=== PATIENT | male | born 1950 | race Caucasian/White ===

== ENCOUNTER 2018-09-13 11:36 | Emergency (ER) | payer MEDICAID, MEDICARE ==
--- NOTE | 2018-09-13 12:40 | ED PDOC ---
Arrival/HPI - General Chief Complaint: Trauma Time Seen by Provider: 09/13/18 12:30 - History of Present Illness Narrative History of Present Illness (Text): 67 y/o male with PMH of HTN and diabetes presents to the ED for evaluation s/p witnessed mechanical fall earlier this morning. Pt was moving boxes when he tripped and fell to the ground, hitting the back of his head. Incident was witnessed by his family member who states that the patient was disoriented for a few seconds after the fall but did not lose consciousness. After the incident, patient stood up and continued with his daily routine, showering and eating breakfast. Pt attempted to go to his PMD, Dr. Whipple's office, who advised patient to come to ED for evaluation. Currently c/o right shoulder pain. Denies headache, vision changes, dizziness, N/V, neck pain, back pain, abdominal pain, chest pain, SOB, weakness, numbness, paresthesia, difficulty speaking or walking. Past Medical History - Provider Review Nursing Documentation Reviewed: Yes - Infectious Disease Hx of Infectious Diseases: None - Cardiac Hx Hypertension: Yes - Endocrine/Metabolic Hx Diabetes Mellitus Type 2: Yes - Psychiatric Hx Substance Use: No - Anesthesia Hx Anesthesia: No Hx Anesthesia Reactions: No Hx Malignant Hyperthermia: No Family/Social History - Physician Review Nursing Documentation Reviewed: Yes Family/Social History: No Known Family HX Smoking Status: Never Smoked Hx Alcohol Use: No Hx Substance Use: No Allergies/Home Meds Allergies/Adverse Reactions: Allergies No Known Allergies Allergy (Verified 09/13/18 12:06) Home Medications: Home Meds Medication Instructions Recorded Confirmed Gemfibrozil 1 tab PO BID 09/13/18 09/13/18 Losartan [Cozaar] 25 mg PO DAILY 09/13/18 09/13/18 MetFORMIN [glucoPHAGE] 1 tab PO DAILY 09/13/18 09/13/18 Review of Systems - Review of Systems Constitutional: Normal Eyes: Normal. absent: Vision Changes ENT: Normal. absent: Hearing Changes, Tinnitus Respiratory: Normal. absent: SOB, Cough Cardiovascular: Normal. absent: Chest Pain, Palpitations, Syncope Gastrointestinal: Normal. absent: Abdominal Pain, Nausea, Vomiting Genitourinary Male: Normal Musculoskeletal: Normal. absent: Arthralgias, Back Pain, Neck Pain Skin: Normal Neurological: Normal. absent: Headache, Dizziness, Focal Weakness, Gait Changes, Speech Changes, Disequilibrium, Seizure Endocrine: Normal Hemo/Lymphatic: Normal Psychiatric: Normal Physical Exam Vital Signs Reviewed: Yes Vital Signs Temp Pulse Resp BP Pulse Ox 09/13/18 12:07 97.6 F 86 18 168/92 H 98 09/13/18 12:02 97.6 F 86 18 168/92 H 98 Temperature: Afebrile Blood Pressure: Normal Pulse: Regular Respiratory Rate: Normal Appearance: Positive for: Well-Appearing, Non-Toxic, Comfortable Pain Distress: None Mental Status: Positive for: Alert and Oriented X 3 - Systems Exam Head: Present: Atraumatic, Normocephalic, Tenderness (mild tenderness over posterior scalp where head strike occured). No: Contusion, Swelling, Ecchymosis Pupils: Present: PERRL Extroacular Muscles: Present: EOMI Conjunctiva: Present: Normal Ears: Present: Normal. No: Other (hemotympanum) Mouth: Present: Moist Mucous Membranes Pharnyx: Present: Normal Nose (External): Present: Atraumatic Nose (Internal): Present: Normal Inspection Neck: Present: Normal Range of Motion Respiratory/Chest: Present: Clear to Auscultation, Good Air Exchange. No: Resp iratory Distress, Accessory Muscle Use Cardiovascular: Present: Regular Rate and Rhythm, Normal S1, S2. No: Murmurs Abdomen: No: Tenderness, Distention, Peritoneal Signs Back: Present: Normal Inspection Upper Extremity: Present: Normal Inspection, Normal ROM, NORMAL PULSES, Tenderness (right lateral shoulder), Neurovascularly Intact, Capillary Refill < 2s. No: Cyanosis, Edema Lower Extremity: Present: Normal Inspection, NORMAL PULSES, Normal ROM, Neurovascularly Intact, Capillary Refill < 2 s. No: Edema Neurological: Present: GCS=15, CN II-XII Intact, Speech Normal, Motor Func Grossly Intact, Normal Sensory Function, Normal Cerebellar Funct, Gait Normal, Memory Normal Skin: Present: Warm, Dry, Normal Color. No: Rashes Psychiatric: Present: Alert, Oriented x 3, Normal Insight, Normal Concentration, Normal Affect, Normal Mood Medical Decision Making ED Course and Treatment: Initial Plan: * Head CT * Right shoulder XR * Tylenol Triage note states that patient had LOC with head injury this morning. However, on further questioning during patient interview, it was determined that patient never lost consciousness during the incident. EKG done by nursing: Rate 74; NSR; normal intervals; no ST elevations or T wave inversions or other signs of acute ischemia. Head CT: no acute intracranial pathology Shoulder XR: negative for acute fracture or dislocation 13:00 Patient is laughing and talking with staff and family, resting comfortably in stretcher. 13:15 Pt tolerating PO without difficulty. No vomiting. Ambulates with steady gait to bathroom. No dizziness. Pt advised to get BP checked when following up with PMD. Notified of elevated reading today in ED. Patient is asymptomatic. Plan of care discussed with patient, and strict instructions given regarding importance of follow up, and signs to return to Emergency Department, to include vision changes, headache, dizziness, weakness, or any other new/worsening symptoms. Son advised on observation for head injury, given instructions in discharge paperwork. Patient and son verbalizes understanding of discussion. Patient A&Ox3, ambulating with steady gait, stable for discharge home. - RAD Interpretation Radiology Orders: 09/13/18 12:39 HEAD W/O CONTRAST [CT] Stat SHOULDER RIGHT [RAD] Stat Disposition/Present on Arrival - Present on Arrival Any Indicators Present on Arrival: No History of DVT/PE: No History of Uncontrolled Diabetes: No Urinary Catheter: No History of Decub. Ulcer: No History Surgical Site Infection Following: None - Disposition Have Diagnosis and Disposition been Completed?: Yes Diagnosis: Fall, Shoulder pain, Head injury Disposition: HOME/ ROUTINE Disposition Time: 13:45 Patient Plan: Discharge Condition: IMPROVED Discharge Instructions (ExitCare): High Blood Pressure in Adults, Preventing Falls in the Older Adult, Head Injury Observation (DC) Additional Instructions: Rest, no strenuous activity Ice 20 minutes at a time for head and shoulder, no direct skin contact Tylenol every 4 hours for pain Followup with primary doctor within 2 days for blood pressure followup Return to ER for any new/worsening Referrals: Zunilda Marti MD [Family Provider] - Follow up with primary Forms: [employer] ([place])
--- NOTE | 2018-09-13 13:22 | CT ---
Date of service: 09/13/2018 PROCEDURE: CT HEAD WITHOUT CONTRAST. HISTORY: headache COMPARISON: None available. TECHNIQUE: Axial computed tomography images were obtained through the head/brain without intravenous contrast. Radiation dose: Total exam DLP = 898.98 mGy-cm. This CT exam was performed using one or more of the following dose reduction techniques: Automated exposure control, adjustment of the mA and/or kV according to patient size, and/or use of iterative reconstruction technique. FINDINGS: HEMORRHAGE: No intracranial hemorrhage. BRAIN: No mass effect or edema. No atrophy or chronic microvascular ischemic changes. VENTRICLES: Unremarkable. No hydrocephalus. CALVARIUM: Unremarkable. PARANASAL SINUSES: Unremarkable as visualized. No significant inflammatory changes. MASTOID AIR CELLS: Unremarkable as visualized. No inflammatory changes. OTHER FINDINGS: None. IMPRESSION: No acute findings
--- NOTE | 2018-09-13 13:26 | RAD ---
Date of service: 09/13/2018 PROCEDURE: Radiographs of the Right Shoulder HISTORY: fall, r/o fracture COMPARISON: No prior. FINDINGS: BONES: Normal. No fracture. JOINTS: Normal. Glenohumeral and acromioclavicular joints preserved. No osteoarthritis. SOFT TISSUES: Normal. OTHER FINDINGS: None. IMPRESSION: Normal radiographs of the right shoulder.
[2018-09-13 13:47] VITALS: BP 151/89
[2018-09-13 14:03] VITALS: PULSE 84; RESP 18; TEMP 98.2; O2SAT 97
--- NOTE | 2018-09-13 19:34 | CARD ---
APPROVED REPORT Date of service: 09/13/2018 EKG Measurement Heart [id number] <Conclusion> Normal sinus rhythm Normal ECG
== END 2018-09-13 14:03 | disposition home or self-care (01) ==
LOC: ED 11:36
DX: S09.90XA Unspecified injury of head, initial encounter (principal); W01.0XXA Fall on same level from slipping, tripping and stumbling without subsequent striking against object, initial encounter; M25.511 Pain in right shoulder; E11.9 Type 2 diabetes mellitus without complications; I10 Essential (primary) hypertension